=== PATIENT | male | born 1965 | race Caucasian/White ===

== ENCOUNTER 2021-05-10 18:29 | Inpatient (IN) | payer MEDICARE ==
[2021-05-10 19:58] LABS: Basophils % (A) 0 %; Eosinophils # (A) 0.2 k/uL (0-0.7); Eosinophils % (A) 3 %; HCT 40.5 % (39.0-53.0); HGB 13.4 gm/dL (13.0-17.5); Lymphocytes # (A) 2.6 k/uL (1.0-4.8); Lymphocytes % (A) 32 %; MCH 32.4 pg (25.0-35.0); MCHC 33.1 g/dL (31.0-37.0); Mean Platelet Volume 6.9; Monocytes # (A) 0.5 k/uL (0-1.0); Monocytes % (A) 6 %; Neutrophils # (A) 4.7 k/uL (1.3-7.7); Neutrophils % (A) 57 %; Platelet Count 221 k/uL (150-450); RBC 4.14 m/uL (4.30-5.90); RDW 12.1 % (11.5-15.5); WBC 8.2 k/uL (3.8-10.6)
[2021-05-10 20:11] LABS: Amphetamine Screen,Urine Not Detected (NotDetected); Barbiturate Screen,Urine Not Detected (NotDetected); Benzodiazepines Screen,Urine Not Detected (NotDetected); Cocaine Screen,Urine Not Detected (NotDetected); Methadone Screen, Urine Not Detected (NotDetected); Opiate Screen,Urine Detected (NotDetected); Oxycodone Screen, Urine Not Detected (NotDetected); Phencyclidine Screen,Urine Not Detected (NotDetected); Tricyclic Antidepressant,Urine Not Detected (NotDetected); Urn Cannabinoid Scrn Not Detected (NotDetected)
[2021-05-10 20:17] LABS: ALT 22 U/L (4-49); AST 34 U/L (17-59); Acetaminophen <10.0 ug/mL; African American GFR (CKD) >90 (>60 ml/min/1.73 sqM); Alcohol <10 mg/dL; Alkaline Phosphatase 71 U/L (38-126); Anion Gap 7 mmol/L; Blood Urea Nitrogen 17 mg/dL (9-20); Calcium 8.9 mg/dL (8.4-10.2); Carbon Dioxide 24 mmol/L (22-30); Chloride 104 mmol/L (98-107); Glucose 99 mg/dL (74-99); Non-African American GFR(CKD) >90 (>60 ml/min/1.73 sqM); Potassium 4.2 mmol/L (3.5-5.1); Salicylate <1.0 mg/dL; Sodium 135 mmol/L (137-145); Total Bilirubin 0.4 mg/dL (0.2-1.3); Total Protein 6.9 g/dL (6.3-8.2)
--- NOTE | 2021-05-10 21:47 | ED ---
Psych HPI - General Chief Complaint: Psychiatric Symptoms Stated Complaint: mental health Time Seen by Provider: 05/10/21 18:45 Source: patient, EMS Mode of arrival: EMS - History of Present Illness Initial Comments: Stephon is a 55-year-old who presents the emergency department today via ambulance for psychiatric evaluation. Patient states that he was just tired and upset. He states he is previously been on psychiatric medications not certain what they are but is not currently on any. Patient states he just moved to [place] from [place] and doesn't have any psychiatric care. He states that his significant other has contacted primary care and psychiatric care for f ollow-up and he has not seen any physicians yet. - Related Data Home Medications Medication Instructions Recorded Confirmed Acetaminophen-Codeine 300-30mg 1 tab PO Q6H PRN 05/10/21 05/10/21 [Tylenol w/codeine #3] Coconut Oil (Unknown Strength) 1 cap PO DAILY 05/10/21 05/10/21 Cyclobenzaprine HCl 10 mg PO TID PRN 05/10/21 05/10/21 Gabapentin [Neurontin] 300 mg PO TID 05/10/21 05/10/21 Glucos Sul 2Kcl/MSM/Chond/C/Mn 1 cap PO DAILY 05/10/21 05/10/21 [Glucosamine Chondroitin Cap] Ibuprofen [Motrin] 600 mg PO Q6HR PRN 05/10/21 05/10/21 [place]-3 Fatty Acids/Fish Oil [Fish 1 cap PO BID 05/10/21 05/10/21 Oil 1,000 mg Softgel] Allergies Allergy/AdvReac Type Severity Reaction Status Date / Time cat dander Allergy Verified 05/10/21 19:53 FROGS Allergy Uncoded 05/10/21 19:53 GRASS Allergy Uncoded 05/10/21 19:53 Review of Systems ROS Statement: Those systems with pertinent positive or pertinent negative responses have been documented in the HPI. ROS Other: All systems not noted in ROS Statement are negative. Past Medical History Past Medical History: Diabetes Mellitus Additional Past Medical History / Comment(s): throat CA, history of ETOH abuse (patient states that he is sober now) History of Any Multi-Drug Resistant Organisms: None Reported Past Surgical History: Joint Replacement Additional Past Surgical History / Comment(s): L knee replacement, back surgery, right ankle surgery, 2 rods and bolts in back, L5 fusion. Past Psychological History: Anxiety, Depression Smoking Status: Current every day smoker Past Alcohol Use History: None Reported Past Drug Use History: None Reported General Exam - General Exam Comments Initial Comments: Physical Exam GENERAL: Patient is well-developed and well-nourished. Patient is nontoxic and well-hydrated and is in no distress. HENT: Normocephalic, Atraumatic. EYES: PERRL, EOMI PULMONARY: Unlabored respirations. CARDIOVASCULAR: RRR Warm and well perfused extremities ABDOMEN: Non-distended SKIN: No rashes or bruising : Deferred NEUROLOGIC: Alert and oriented Normal speech Normal gait MUSCULOSKELETAL: Moving all extremities with no apparent injury PSYCHIATRIC: Easily agitated Limitations: no limitations Course Vital Signs 05/10/21 18:57 Temperature 98.5 F Pulse Rate 84 Respiratory 18 Rate Blood Pressure 118/74 O2 Sat by Pulse 96 Oximetry Medical Decision Making - Medical Decision Making Patient's significant other arrived at bedside, she petitioned area and she states that the patient has made suicidal and homicidal threats. He is certain to hurt their animals. He has a psychiatric history and a violent history. Patient was medically cleared and was evaluated by emergency psychiatric services who agree the patient needs to be hospitalized. Psychiatric certification was completed - Lab Data Result diagrams: 05/10/21 18:46 05/10/21 18:46 Lab Results 05/10/21 05/10/21 05/10/21 Range/Units 18:46 18:46 19:51 WBC 8.2 (3.8-10.6) k/uL RBC 4.14 L (4.30-5.90) m/uL Hgb 13.4 (13.0-17.5) gm/dL Hct 40.5 (39.0-53.0) % MCV 98.0 (80.0-100.0) fL MCH 32.4 (25.0-35.0) pg MCHC 33.1 (31.0-37.0) g/dL RDW 12.1 (11.5-15.5) % Plt Count 221 (150-450) k/uL MPV 6.9 Neutrophils % 57 % Lymphocytes % 32 % Monocytes % 6 % Eosinophils % 3 % Basophils % 0 % Neutrophils # 4.7 (1.3-7.7) k/uL Lymphocytes # 2.6 (1.0-4.8) k/uL Monocytes # 0.5 (0-1.0) k/uL Eosinophils # 0.2 (0-0.7) k/uL Basophils # 0.0 (0-0.2) k/uL Sodium 135 L (137-145) mmol/L Potassium 4.2 (3.5-5.1) mmol/L Chloride 104 (98-107) mmol/L Carbon Dioxide 24 (22-30) mmol/L Anion Gap 7 mmol/L BUN 17 (9-20) mg/dL Creatinine 0.76 (0.66-1.25) mg/dL Est GFR (CKD-EPI)AfAm >90 (>60 ml/min/1.73 sqM) Est GFR (CKD-EPI)NonAf >90 (>60 ml/min/1.73 sqM) Glucose 99 (74-99) mg/dL Calcium 8.9 (8.4-10.2) mg/dL Total Bilirubin 0.4 (0.2-1.3) mg/dL AST 34 (17-59) U/L ALT 22 (4-49) U/L Alkaline Phosphatase 71 (38-126) U/L Total Protein 6.9 (6.3-8.2) g/dL Albumin 4.0 (3.5-5.0) g/dL Salicylates <1.0 mg/dL Urine Opiates Screen Detected H (NotDetected) Ur Oxycodone Screen Not Detected (NotDetected) Urine Methadone Screen Not Detected (NotDetected) Ur Propoxyphene Screen Not Detected (NotDetected) Acetaminophen <10.0 ug/mL Ur Barbiturates Screen Not Detected (NotDetected) U Tricyclic Antidepress Not Detected (NotDetected) Ur Phencyclidine Scrn Not Detected (NotDetected) Ur Amphetamines Screen Not Detected (NotDetected) U Methamphetamines Scrn Not Detected (NotDetected) U Benzodiazepines Scrn Not Detected (NotDetected) Urine Cocaine Screen Not Detected (NotDetected) U Marijuana (THC) Screen Not Detected (NotDetected) Serum Alcohol <10 mg/dL Disposition Clinical Impression: Suicidal ideation Disposition: TRANSFER TO PSYCH HOSP/UNIT Condition: Stable Referrals: Nonstaff,Physician [Primary Care Provider] - 1-2 days
[2021-05-10] MEDS ORDERED: MAGNESIUM HYDROXIDE 2,400 MG/10 ML CUP PO PRN (23:10)
[2021-05-10] MEDS ORDERED: MAG HYDROX/AL HYDROX/SIMETH 30 ML CUP PO PRN (23:10)
[2021-05-10] MEDS ORDERED: LORazepam 1 MG TAB PO PRN (23:10)
[2021-05-10] MEDS ORDERED: HALOPERIDOL LACTATE 5 MG/ML 1 ML VIAL IM PRN (23:14)
[2021-05-10] MEDS ORDERED: haloperidoL 5 MG TAB PO PRN (23:14)
[2021-05-10] MEDS ORDERED: LORazepam 2 MG/ML INJ IM PRN (23:16)
[2021-05-10 23:25] LABS: Appearance,Urine Clear (Clear); Bilirubin,Urine Negative (Negative); Blood,Urine Negative (Negative); Color,Urine Light Yellow; Glucose,Urine (UA) Negative (Negative); Ketones,Urine Negative (Negative); Leukocyte Esterase,Urine Negative (Negative); Nitrite,Urine Negative (Negative); PH, Urine 6.5 (5.0-8.0); Protein,Urine Negative (Negative); Specific Gravity,Urine 1.005 (1.001-1.035); Urobilinogen,Urine <2.0 mg/dL (<2.0)
[2021-05-11] MEDS: ACETAMINOPHEN TAB 325 MG TAB PO PRN ×5 (00:30→22:19)
--- NOTE | 2021-05-11 02:54 | P.PN ---
Progress Note - Text Progress Note Date: 05/11/21 Patient sleeping. Will evaluate in am.
[2021-05-11] MEDS: NICOTINE 21MG/24HR PATCH TRANSDERM SCH (08:21)
[2021-05-11] MEDS ORDERED: NICOTINE 14MG/24HR PATCH TRANSDERM SCH (09:00)
[2021-05-11 09:38] LABS: Chol/HDL Ratio 3.67 Ratio; HDL Cholesterol 36.5 mg/dL (40.00-60.00); LDL Cholesterol,Calculated 72.3 mg/dL (0.0-131.0); VLDL Calculation 25.2 mg/dL (5.00-40.00)
[2021-05-11] MEDS: DULoxetine HCL 30 MG CAPSULE.DR PO SCH (13:37)
[2021-05-11] MEDS: ATORVASTATIN 20 MG TAB PO SCH (13:37)
--- NOTE | 2021-05-11 14:54 | HP ---
HISTORY AND PHYSICAL DATE OF SERVICE: 05/11/2021 IDENTIFYING DATA: The patient is a 55-year-old male. He lives with his girlfriend. He presented to the ED for evaluation. His girlfriend completed a petition for involuntary hospitalization. CHIEF COMPLAINT: The patient was depressed. He had made suicide statements. HISTORY OF PRESENTING ILLNESS: The patient has had past issues with alcohol. He said he was in a treatment program one time and stopped stop drinking as of 2006 and has not used alcohol since then. He denies use of marijuana or other abusive substances. He notes that he had been on some medication for depression 2 or 3 years ago, though he could not provide much detail. His current situation is that he had just moved in December from [place] to [place] to live with his girlfriend. The two of them have been together over the last 2 years or so. They met online and would visit between [place] and [place] until this past December. 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 He was seeking general medical care and just went to [facility] 1 week ago, he got set up for a pain management appointment along with a cardiology appointment because of hyperlipidemia. Also, he was set up with some mental health followup. He was not able to give details or specifics as to where the referrals were. He acknowledges that he has been having some depression and stress, mainly related to his relationship with his girlfriend. He states that the two of them seem to get into conflicts, which by his report is mainly around some of his girlfriend's behavior and choices she makes. He acknowledges that he has had some depression issues over the last several weeks or longer. He notes that his sleep is down. He says some nights he can sleep well and others not at all. His appetite has been down of late. He has loss of motivation, energy and interest. He denies hallucinations or delusional thinking. He does not clearly identify panic or posttraumatic issues. He does acknowledge some anxiety. He notes one of his problems is that he has drifted away from getting from having his connections with the AA. He says the things that have been the most supportive for him over the years in dealing with his alcohol has been AA and caodaism. He has been encouraging his girlfriend that the two of them should get back to caodaism together. He notes that he sees a potential benefit for his getting involved in individual therapy, though also says that he and his girlfriend have talked about getting into couples therapy together. He had been on long-term use of some opioid pain medications and mainly had been prescribed Tylenol with codeine, which he said he had been on for quite a period of time back in [place]. He said that he has not used any since moving to [place] as he has not had a prescription. When he went to [facility] this past week he was able to give get a limited prescription for Tylenol with codeine which she uses for lower back and hip pain. He is not presently on any psychotropic medications. He notes that he has been taking Flexeril and Neurontin to help with pain issues along with Motrin. He is denying any suicide thinking at the time of the interview. He is admitted for further evaluation. SUBSTANCE USE HISTORY: As above. He has a distant past history of alcohol dependence. He has been on long- term use of Tylenol with codeine up until December. PAST MEDICAL HISTORY: Patient has orthopedic injuries in his lower back and hips related to a fall in 2016. He also says he has chronic pain with those conditions in addition he has emphysema and hypercholesterolemia. FAMILY AND SOCIAL HISTORY: Patient did not provide much information. He has been disabled since 2016. 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 He says that he tries to get back to [place] to visit his brother and mother. MENTAL STATUS EXAM: Patient sat with some restlessness. He gave fairly good eye contact he answered questions with brief responses. His thoughts were clear. He was somewhat spontaneous and interactive. He was quite focused on the idea that he that there was not much criteria for him to be in the hospital. He did not believe that documentation in the petition was very accurate. His affect was somewhat intense. His mood dysphoric. He seemed moderately distressed. There was no indication for thought disorder. He was petitioned for making suicide statements, though the patient denies in any impulse or plans in that direction. On cognitive exam, the patient was oriented and alert. Recent remote memory was intact. The patient could recall 2/3 objects in 4 minutes. He could give the days of the week in reverse order without difficulty. He could spell world forward and backwards. Insight and judgment were fair. Fund of knowledge average. PHYSICAL EXAM: As per medical consultation. It is noteworthy that when he was in the ED there were times that he seemed to be quite calm and appropriate in his interactions. He was respectful and polite. Then there are other times where he seemed to get angry and distressed. Apparently his girlfriend had made indications that his threats of harm both to himself and others is much more significant issue than the patient was willing to acknowledge. ASSESSMENT: This 55-year-old male is diagnosed with major depression. He does have chronic pain issues, which may benefit from antidepressant therapy as well. There is apparently a fair difference of opinion between the patient and girlfriend in regard to the patient's general mental state and she has expressed significant concern that the patient himself minimizes. Apparently staff in the ED have also observed some significant shifts in mood. There would be concern for his use of opioid pain medications, though the only information we have is that he has been off opioids since December other than a recent prescription. Strengths include his recognition of important supports such as AA and caodaism. Weakness includes relationship conflicts. DIAGNOSES: 1. Major depression chronic and recurrent severe, without psychotic features. 2. Distant history of alcohol dependence in remission. 3. Chronic pain disorder. 4. Emphysema. 5. Hypercholesterolemia. RECOMMENDATIONS: Patient will be admitted for comprehensive medical psychiatric and psychosocial evaluation. We will engage the patient in individual and group therapeutic activities I had an extensive discussion with the patient regarding the petition process, also reviewed medication options for the patient. At this point, I will start the patient on Cymbalta 30 mg a day. Cymbalta often is prescribed by pain specialists for chronic pain, though we discussed that any antidepressant could benefit long-term pain issues. I will start him on 30 mg a day. If he has a relatively short stay, I would look for followup with the indication to titrate up on his Cymbalta. Apparently, the patient has had some contact with potential mental health follow up, we can look on Thursday to help coordinate with followup care. We will focus on stabilization and discharge planning. MMCHIKISL / SILVIAN: [id number] /
--- NOTE | 2021-05-12 04:51 | P.CONS ---
History of Present Illness - Reason for Consult Consult date: 05/11/21 - History of Present Illness The patient is a 55-year-old male with a PMH of tobacco abuse and fall with subsequent chronic lower back pain who presents to the emergency room after being petitioned by his girlfriend for suicidal ideation. Patient reports that he currently feels well and denied any active complaints. He denied chest discomfort, shortness of breath, fever, chills, cough. Denied nausea, vomiting, abdominal pain, diarrhea. Reports smoking 1-1/2 packs of cigarettes daily. Past several decades. Review of systems: Pertinent positives and negatives as discussed in HPI, a complete review of systems was performed and all other systems are negative. Physical examination: General: non toxic, no distress, appears at stated age, obese Derm: no unusual rashes/lesions no unusual ecchymoses, warm, dry Head: atraumatic, normocephalic, symmetric Eyes: EOMI, no lid lag, anicteric sclera, pupils equal round reactive to light ENT: Nose and ears atraumatic, no thrush, no pharyngeal erythema Neck: No thyromegaly, no cervical lymphadenopathy, trachea midline, supple Mouth: no lip lesion, mucus membranes moist Cardiovascular: S1S2 reg, no murmur, positive posterior tibial pulse bilateral, no edema, capillary refill less than 2 seconds Lungs: CTA bilateral, no rhonchi, no rales , no accessory muscle use Abdominal: soft, nontender to palpation, no guarding, no appreciable organomegaly, normal bowel sounds Ext: no gross muscle atrophy, muscle strength 5 out of 5 in all 4 extremities grossly, no contractures, Neuro: CN II-XI grossly intact, light touch intact all 4 extremities, finger to nose within normal limits, Psych: Alert, oriented, appropriate affect Assessment/plan Tobacco abuse -Advised on the importance of cessation -Nicotine patch when necessary Depression with suicidal ideation -As per psychiatry Past Medical History Past Medical History: Diabetes Mellitus Additional Past Medical History / Comment(s): throat CA, history of ETOH abuse (patient states that he is sober now) History of Any Multi-Drug Resistant Organisms: None Reported Past Surgical History: Joint Replacement Additional Past Surgical History / Comment(s): L knee replacement, back surgery, right ankle surgery, 2 rods and bolts in back, L5 fusion. Past Psychological History: Anxiety, Depression Smoking Status: Current every day smoker Past Alcohol Use History: None Reported, Abuse Additional Past Alcohol Use History / Comment(s): Past history of ETOH abuse, sober since 2006, goes To AA meeting routinely Past Drug Use History: None Reported - Past Family History Father Family Medical History: Hyperlipidemia Medications and Allergies Home Medications Medication Instructions Recorded Confirmed Type Acetaminophen-Codeine 300-30mg 1 tab PO Q6H PRN 05/10/21 05/10/21 History [Tylenol w/codeine #3] Coconut Oil (Unknown Strength) 1 cap PO DAILY 05/10/21 05/10/21 History Cyclobenzaprine HCl 10 mg PO TID PRN 05/10/21 05/10/21 History Gabapentin [Neurontin] 300 mg PO TID 05/10/21 05/10/21 History Glucos Sul 2Kcl/MSM/Chond/C/Mn 1 cap PO DAILY 05/10/21 05/10/21 History [Glucosamine Chondroitin Cap] Ibuprofen [Motrin] 600 mg PO Q6HR PRN 05/10/21 05/10/21 History [place]-3 Fatty Acids/Fish Oil [Fish 1 cap PO BID 05/10/21 05/10/21 History Oil 1,000 mg Softgel] Allergies Allergy/AdvReac Type Severity Reaction Status Date / Time cat dander Allergy Verified 05/10/21 19:53 FROGS Allergy Uncoded 05/10/21 19:53 GRASS Allergy Uncoded 05/10/21 19:53 Physical Exam Vitals: Vital Signs Temp Pulse Pulse Resp BP BP Pulse Ox 05/11/21 00:29 97.7 F 75 18 142/75 97 05/10/21 18:57 98.5 F 84 18 118/74 96 Intake and Output 05/11/21 05/11/21 05/11/21 06:59 14:59 22:59 Other: Weight 108.8 kg Results CBC & Chem 7: 05/10/21 18:46 05/10/21 18:46 Labs: Abnormal Lab Results - Last 24 Hours (Table) 05/10/21 05/10/21 05/10/21 Range/Units 18:44 18:46 18:46 RBC 4.14 L (4.30-5.90) m/uL Sodium 135 L (137-145) mmol/L HDL Cholesterol 36.50 L (40.00-60.00) mg/dL Urine Opiates Screen (NotDetected) 05/10/21 Range/Units 19:51 RBC (4.30-5.90) m/uL Sodium (137-145) mmol/L HDL Cholesterol (40.00-60.00) mg/dL Urine Opiates Screen Detected H (NotDetected)
[2021-05-12] MEDS: FLUTICASONE 220 MCG INHALATION SCH ×2 (07:45→20:41)
[2021-05-12] MEDS: VENTOLIN INHALATION PRN ×2 (07:45→20:41)
[2021-05-12] MEDS: ACETAMINOPHEN TAB 325 MG TAB PO PRN ×2 (07:54→20:22)
[2021-05-12] MEDS: ATORVASTATIN 20 MG TAB PO SCH (07:55)
[2021-05-12] MEDS: DULoxetine HCL 30 MG CAPSULE.DR PO SCH (07:55)
[2021-05-12] MEDS: NICOTINE 21MG/24HR PATCH TRANSDERM SCH (07:55)
[2021-05-12] MEDS ORDERED: BACLOFEN 10 MG TAB PO PRN (11:17)
[2021-05-12] MEDS: IBUPROFEN 400 MG TAB PO SCH ×3 (12:05→23:57)
[2021-05-12] MEDS: OLANZapine 10 MG TAB PO SCH ×2 (12:05→20:43)
[2021-05-12] MEDS: GABAPENTIN 300 MG CAP PO SCH ×2 (12:06→20:43)
[2021-05-12] MEDS: ASPIRIN 81 MG PO SCH (12:06)
--- NOTE | 2021-05-12 12:22 | PN ---
PROGRESS NOTE DATE OF SERVICE: 05/12/2021. CHIEF COMPLAINT: The patient was depressed, he had made suicide statements. INTERVAL HISTORY: Patient has been doing fair. He had a quiet day yesterday. He comes out on the unit, he interacts with others. He attended groups. It is noted that in the groups and milieu, he presented in a calm and reasonable manner. He slept fairly well last night. Today he has been up. It is noted that I had an extensive telephone call with the patient's girlfriend, Ivy. She describes that the patient has been explosive. She notes that the two of them had been together in [place] toward the end of last year, though then they had a break-up mainly because of his explosive nature. They continued to stay in contact and he ultimately moved back to [place] to live with her in December. She described that he could have frequent episodes where he gets very intense and angry. He will do things such as threaten animals, saying things like he would cut the dog's head off. He has constant talk about hopelessness and suicide. He had a lot of anger issues over some of the basic issues the two of them were dealing with regarding their house. The patient has made statements that he would kill himself and also that he would kill her end all of the problems that they have had. She noted that any little thing can set him off to where he gets very intense and loud. He also seems to need attention and when others are getting attention that seems to set him off even more. She gave as an example that they were just at her aunt's a few days ago and that seemed to get him into quite an intense spell. She notes that he can have quite impulsive and intense behavior if he has pain. He she has observed him taking Motrin 800 mg 6-7 tablets at that time. He has been taking Tylenol 3, though the amount he has had has been fairly limited. She believed that he may have taken about 8 tablets in the last 2 days prior to coming into the hospital. She gave an example that recently he ended up drinking a whole bottle of NyQuil to help put himself to sleep and then ended up in a fairly disorganized state to the point where he urinated on the floor and was quite ataxic. She notes that if the two of them get into any kind of discussion about things often he ends up turning everything back on her and accusing her of one thing or another. She notes that he has had some paranoid thinking and 1 example was that recently he found some razor blades in his boots and was believing that others had put it there purposely. She says the two of them have talked about some couples counseling. When I talked to the patient and reviewed these issues, he was quite adamant about the idea of how much trouble Ivy has. He made a fair effort to again turn the discussion on problems she has and how that causes him a lot of distress. He made suggestions that she he made suggestions that she has been unfaithful that she likely has bipolar disorder and that she has quite disorganized behavior at times. He stated he believes she should be in the hospital and not him. One issue that Ivy noted was that the patient does have significant mood swings and will have episodes where he will get into a very high mood. He will have high energy. He may go on spending sprees and then can crash into depression. She feels that he has had quite a difficult time with trying to maintain a more even mood and has had a lot of mood swings from highs to low. When I had discussed this with the patient he did seem to except to early some degree that bipolar issues may be in the picture for him. At this point he has not had problems with the start of Cymbalta. MENTAL STATUS EXAM: Patient presented in quite an intense manner. When I reviewed issues regarding the telephone call with the girlfriend he was quite upset and angry. He at times would ramble about all of the problems he believed that she has had. He tended to minimize his own issues. His thoughts were clear and coherent, though he rambled at times. His affect was intense. His mood depressed. He was significantly distressed. There was a question of paranoid thinking. When I talked to him, he states that he does not have any thoughts of harming himself or others. He was oriented and alert. ASSESSMENT: I will initiate a diagnosis of bipolar disorder. I had an extensive discussion with the patient regarding treatment for bipolar disorder. At this point I will start him on Zyprexa 10 mg twice a day. I discussed the potential risk of his being on an antidepressant as it relates to the potential for destabilizing in his bipolar condition. I suggested that the patient should likely continue on 30 mg of Cymbalta and focus on Zyprexa as a primary medication at this point. We discussed that it may take a few weeks to have clarity as far as how much benefit he may get from Zyprexa. Beyond that it might be reasonable to look at possibly titrating up on Cymbalta in part as a pain medication. I briefly reviewed issues relating to Zyprexa though the though kept it limited as the patient was not too inclined to engage in that conversation. Part of our discussion was that the patient was very focused on being discharged from the hospital as soon as possible. I discussed that I would anticipate a reasonable time frame for hospitalization would be from Thursday until Thursday and that would depend on things getting a little more stable with his starting the Zyprexa. The patient states that he did have a referral for Psychiatry that came through [facility]. He should have an e-mail in that regard. I told him that he can work with social workers tomorrow and get the information so that we can help him get followup appointments in place. We will focus on stabilization and discharge planning. VANGIE / GABRIELLE: [id number] /
[2021-05-13 06:37] VITALS: BP 126/73; PULSE 81; RESP 20; TEMP 97.6
[2021-05-13] MEDS: NICOTINE 21MG/24HR PATCH TRANSDERM SCH (08:21)
[2021-05-13] MEDS: ASPIRIN 81 MG PO SCH (08:21)
[2021-05-13] MEDS: FLUTICASONE 220 MCG INHALATION SCH ×2 (08:21→20:02)
[2021-05-13] MEDS: ATORVASTATIN 20 MG TAB PO SCH (08:21)
[2021-05-13] MEDS: IBUPROFEN 400 MG TAB PO SCH ×3 (08:21→20:01)
[2021-05-13] MEDS: DULoxetine HCL 30 MG CAPSULE.DR PO SCH (08:22)
[2021-05-13] MEDS: OLANZapine 10 MG TAB PO SCH (08:22)
[2021-05-13] MEDS: VENTOLIN INHALATION PRN ×2 (08:23→20:02)
[2021-05-13] MEDS: GABAPENTIN 300 MG CAP PO SCH ×2 (08:23→20:01)
[2021-05-13] MEDS: ACETAMINOPHEN TAB 325 MG TAB PO PRN ×2 (12:01→17:46)
--- NOTE | 2021-05-13 13:49 | P.PN ---
Progress Note - Text Progress Note Date: 05/13/21 Interval History: Patient was seen wandering the hallways and was directable and agreeable to merari nunez with assembly instructions writer in the office. Patient appeared to be fairly calm and directable during conversation. He answered questions appropriately. He currently is able to sleep fairly last night. He did claim that over the weekend he was feeling fairly tired during group due to the Zyprexa in the morning. He states that his mood and anxiety evident improving and he is no longer feeling much depression. He states that he spoke to his and wants ago back home tomorrow. He claims that he has been trying to go to groups and participate as best as he can. At this time patient denies any suicidal or homical ideations, intent or plan. Patient denies any auditory, visual hallucinations and denies any paranoia or delusions. Patient denies any side effects from the medications and has been compliant with meds. Patient had signed an AMA today. Mental Status Exam: General Appearance: Patient appears to be well built, stated age is alert, directable, and cooperative. Behavior: Patient is calmly seated without any agitated behavior. Cooperative Speech: Patient's speech is fluent and nonpressured. Mood/Affect: Mood is improving mildly, affect is congruent and constricted. Suicidality/Homicidality: Patient denies having any suicidal or homicidal ideation intent or plan. Perceptions: Patient denies any visual hallucinations and denies any auditory hallucinations Though content/process: There is no evidence of any delusional thought content and thought process is linear and goal-directed. Memory and concentration: AOX3, grossly intact for the purposes of this session Judgment and insight: Improving mildly Assessment Depressive disorder unspecified, rule out bipolar depression versus major depressive disorder Nicotine dependence Plan: -Patient continues to meet criteria for inpatient psychiatric admission for symptom stabilization and safety. Patient has signed adult voluntary form and medication consent and was placed in patient's chart. -Medications: Decrease Zyprexa to 10 mg daily at bedtime for insomnia/mood adjunct, continue Cymbalta 30 mg daily for mood/anxiety/pain. -When necessary Ativan and Haldol for agitation/aggression. -NRT - nicotine patch -SW on board for discharge planning. Encouraged the patient to participate in milieu. Patient signed AMA today. Likely discharge tomorrow.
[2021-05-13] MEDS ORDERED: OLANZapine 10 MG TAB PO SCH (21:00)
[2021-05-14] MEDS: ASPIRIN 81 MG PO SCH (08:15)
[2021-05-14] MEDS: DULoxetine HCL 30 MG CAPSULE.DR PO SCH (08:15)
[2021-05-14] MEDS: IBUPROFEN 400 MG TAB PO SCH ×2 (08:15→15:49)
[2021-05-14] MEDS: NICOTINE 21MG/24HR PATCH TRANSDERM SCH (08:15)
[2021-05-14] MEDS: GABAPENTIN 300 MG CAP PO SCH (08:16)
[2021-05-14] MEDS: ATORVASTATIN 20 MG TAB PO SCH (08:16)
[2021-05-14] MEDS: FLUTICASONE 220 MCG INHALATION SCH (08:17)
[2021-05-14] MEDS: VENTOLIN INHALATION PRN ×2 (08:18→15:47)
--- NOTE | 2021-05-14 10:30 | P.DS ---
Providers Date of admission: 05/10/21 23:07 Expected date of discharge: 05/14/21 Attending physician: Elliot Hayden MD Consults: 05/10/21 23:10 Consult Physician Routine Consulting Provider: [facility] Consult Reason/Comments: H&P for mental health admission Do you want consulting provider notified?: Yes Primary care physician: Physician Nonstaff - Discharge Diagnosis(es) (1) Depressive disorder Current Visit: Yes Status: Acute Priority: High (2) Nicotine dependence Current Visit: Yes Status: Acute Priority: Low Hospital Course: Admission HPI: Admission note was completed by Dr. Barragan "the patient is a 55-year-old male. He lives with his girlfriend. He presented to the ED for evaluation. His girlfriend completed a petition for involuntary hospitalization. The patient was depressed. He made suicidal statements. The patient has had past issues with alcohol. He said he was in a treatment program 1 time and stopped drinking as of 2006 and has not used alcohol since then. He denies use of marijuana or other abuse of substances. He notes that he had been on some medication for depression 2 or 3 years ago, though he could not provide much detail. His current situation is that he had just moved in December from [place] to [place] to live with his girlfriend. The 2 of them have been together for over the last 2 years or so. They met online and would visit between [place] and [place] until this past December. 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 He was seeking general medical care and just went to [facility] one week ago, he got set up for pain management appointment along with a cardiology appointment because of hyperlipidemia. Also he was set up with some mental health follow-up. She was not able to give details or specifics as to where the referrals were. He acknowledges that he has been having some depression and stress, mainly related to his relationship with his girlfriend. He states that the 2 of them seem to get into conflicts which is mainly around some of his girlfriend's behavior and choices she makes. He acknowledges that he has had some depression issues over the last several years or longer. He notes that his sleep is down. He says some nights he can sleep well and others not at all. His appetite has been down of late. He has lost motivation, energy and interest. He denies hallucinations or delusional thinking. He does not clearly identify panic or posttraumatic issues. He does acknowledge some anxiety. He notes one of his problems is that he has drifted away from getting from having his connections with AA. He says the things that have been the most supportive for him over the years and dealing with alcohol have been AA and spiritism. He has been encouraging his girlfriend and the 2 of them should get back to spiritism together. He notes that he sees the potential benefit for his getting involved in individual therapy though also says that he and his girlfriend have talked about getting into couples therapy together. He has been on long-term use of some opioid pain medications and mainly had been prescribed Tylenol with codeine, which he said he had been on for quite a period of time back in [place]. He said that he has not used any since moving to [place] as he has not had a prescription. When he went and before this past week he was able to give get a limited prescription for Tylenol with codeine which she uses for lower back and hip pain. He is not presently on any psychotropic medications. He notes that he has been taking Flexeril and Neurontin to help with pain issues along with Motrin. He is denying any suicidal thinking at the time of the interview. He has been in for further evaluation." Hospital course: Upon admission to the unit patient was directable and agreeable to commence treatment and signed adult voluntary form . Patient got along well with other patients on the unit and followed unit protocol. Patient was compliant with the medications and denied any side effects throughout hospital course. Patient was started on Cymbalta 30 mg daily for mood/anxiety/pain. Patient was also started on Zyprexa and increased to a dose of 10 mg daily at bedtime for mood adjunct/insomnia. Patient spoke of his stressors and engaged in therapy both group and individual. Patient was also seen by medical team for history and physical exam. Throughout the course of the hospitalization patient gradually improved with regards to mood, anxiety, sleep and became more future oriented with improved insight and judgment. On the day of discharge patient denied any suicidal or homicidal ideations intent or plan denied any auditory or visual hallucinations. Patient endorsed wanting to live for his health and family. The patient denied any access to guns or weapons. Patient denied any paranoia and did not endorse any delusions. Patient does have a significant history of substance abuse and was counseled on abstaining from all substances including alcohol and marijuana. Patient was also counseled on the medications and need for regular compliance and was encouraged to follow-up with their outpatient appointment for mental health and also for primary care. Prior to discharge a family meeting will be arranged by social and political studies professor to answer any questions and ensure safety upon discharge. Mental status exam: General Appearance: Patient appears to be well built, tattoos, stated age is alert, pleasant, and cooperative. Patient is in no acute distress and has improved hygiene and grooming Behavior: Patient is calmly seated without any agitated behavior. Speech: Patient's speech is fluent and nonpressured. Mood/Affect: Patient reports their mood is "better", affect is congruent and euthymic. Suicidality/Homicidality: Patient denies having any suicidal or homicidal ideation intent or plan. Perceptions: Patient denies any auditory or visual hallucinations. Though content/process: There is no evidence of any delusional thought content and thought process is linear and goal-directed. more future oriented Memory and concentration: AOX3, grossly intact for the purposes of this session. Can spell "WORLD" backwards correctly. Judgment and insight: improved with guarded prognosis Impression: Depressive disorder unspecified, rule out bipolar depression versus major depressive disorder Nicotine dependence Plan: -Continue with discharge today as patient has improved and stabilized psychiatrically and is not currently an imminent threat to himself and/or others. -Continue medications: Cymbalta 30 mg daily for mood/anxiety/pain, Zyprexa 10 mg daily at bedtime for insomnia/mood adjunct. -Patient was counseled on the need for medication compliance and appropriate follow-up at mental health and also primary care for medical issues. Patient verbalized understanding and agreed. -Social work to arrange for and conduct family meeting to ensure safety upon discharge and answer any questions/concerns. Social work also to arrange for patients follow up appointments with [facility] for psychiatric care along with follow up with primary care provider. -Patient counseled on abstaining from recreational drugs and marijuana and alcohol. Was informed/educated on the adverse effects on their physical and mental health. Patient verbally agreed and understood. -Patient was instructed to return to the hospital or seek immediate medical care if their psychiatric or medical symptoms do worsen or reoccur. Allergies Allergy/AdvReac Type Severity Reaction Status Date / Time cat dander Allergy Verified 05/10/21 19:53 FROGS Allergy Uncoded 05/10/21 19:53 GRASS Allergy Uncoded 05/10/21 19:53 Laboratory Results WBC 8.2 k/uL (3.8-10.6) 05/10/21 18:46 RBC 4.14 m/uL (4.30-5.90) L 05/10/21 18:46 Hgb 13.4 gm/dL (13.0-17.5) 05/10/21 18:46 Hct 40.5 % (39.0-53.0) 05/10/21 18:46 MCV 98.0 fL (80.0-100.0) 05/10/21 18:46 MCH 32.4 pg (25.0-35.0) 05/10/21 18:46 MCHC 33.1 g/dL (31.0-37.0) 05/10/21 18:46 RDW 12.1 % (11.5-15.5) 05/10/21 18:46 Plt Count 221 k/uL (150-450) 05/10/21 18:46 MPV 6.9 05/10/21 18:46 Neutrophils % 57 % 05/10/21 18:46 Lymphocytes % 32 % 05/10/21 18:46 Monocytes % 6 % 05/10/21 18:46 Eosinophils % 3 % 05/10/21 18:46 Basophils % 0 % 05/10/21 18:46 Neutrophils # 4.7 k/uL (1.3-7.7) 05/10/21 18:46 Lymphocytes # 2.6 k/uL (1.0-4.8) 05/10/21 18:46 Monocytes # 0.5 k/uL (0-1.0) 05/10/21 18:46 Eosinophils # 0.2 k/uL (0-0.7) 05/10/21 18:46 Basophils # 0.0 k/uL (0-0.2) 05/10/21 18:46 Sodium 135 mmol/L (137-145) L 05/10/21 18:46 Potassium 4.2 mmol/L (3.5-5.1) 05/10/21 18:46 Chloride 104 mmol/L (98-107) 05/10/21 18:46 Carbon Dioxide 24 mmol/L (22-30) 05/10/21 18:46 Anion Gap 7 mmol/L 05/10/21 18:46 BUN 17 mg/dL (9-20) 05/10/21 18:46 Creatinine 0.76 mg/dL (0.66-1.25) 05/10/21 18:46 Est GFR (CKD-EPI)AfAm >90 (>60 ml/min/1.73 sqM) 05/10/21 18:46 Est GFR (CKD-EPI)NonAf >90 (>60 ml/min/1.73 sqM) 05/10/21 18:46 Glucose 99 mg/dL (74-99) 05/10/21 18:[address] Glu mg/dL 117 05/10/21 18:44 Hemoglobin A1c 5.7 % (4.0-6.0) 05/10/21 18:44 Calcium 8.9 mg/dL (8.4-10.2) 05/10/21 18:46 Total Bilirubin 0.4 mg/dL (0.2-1.3) 05/10/21 18:46 AST 34 U/L (17-59) 05/10/21 18:46 ALT 22 U/L (4-49) 05/10/21 18:46 Alkaline Phosphatase 71 U/L (38-126) 05/10/21 18:46 Total Protein 6.9 g/dL (6.3-8.2) 05/10/21 18:46 Albumin 4.0 g/dL (3.5-5.0) 05/10/21 18:46 Triglycerides 126.00 mg/dL (0.00-149.00) 05/10/21 18:44 Cholesterol 134.00 mg/dL (0.00-200.00) 05/10/21 18:44 LDL Cholesterol, Calc 72.3 mg/dL (0.0-131.0) 05/10/21 18:44 VLDL Cholesterol, Calc 25.20 mg/dL (5.00-40.00) 05/10/21 18:44 HDL Cholesterol 36.50 mg/dL (40.00-60.00) L 05/10/21 18:44 Cholesterol/HDL Ratio 3.67 Ratio 05/10/21 18:44 TSH 0.800 mIU/L (0.465-4.680) 05/10/21 18:44 Urine Color Light Yellow 05/10/21 19:51 Urine Appearance Clear (Clear) 05/10/21 19:51 Urine pH 6.5 (5.0-8.0) 05/10/21 19:51 Ur Specific [place] 1.005 (1.001-1.035) 05/10/21 19:51 Urine Protein Negative (Negative) 05/10/21 19:51 Urine Glucose (UA) Negative (Negative) 05/10/21 19:51 Urine Ketones Negative (Negative) 05/10/21 19:51 Urine Blood Negative (Negative) 05/10/21 19:51 Urine Nitrite Negative (Negative) 05/10/21 19:51 Urine Bilirubin Negative (Negative) 05/10/21 19:51 Urine Urobilinogen <2.0 mg/dL (<2.0) 05/10/21 19:51 Ur Leukocyte Esterase Negative (Negative) 05/10/21 19:51 Salicylates <1.0 mg/dL 05/10/21 18:46 Urine Opiates Screen Detected (NotDetected) H 05/10/21 19:51 Ur Oxycodone Screen Not Detected (NotDetected) 05/10/21 19:51 Urine Methadone Screen Not Detected (NotDetected) 05/10/21 19:51 Ur Propoxyphene Screen Not Detected (NotDetected) 05/10/21 19:51 Acetaminophen <10.0 ug/mL 05/10/21 18:46 Ur Barbiturates Screen Not Detected (NotDetected) 05/10/21 19:51 U Tricyclic Antidepress Not Detected (NotDetected) 05/10/21 19:51 Ur Phencyclidine Scrn Not Detected (NotDetected) 05/10/21 19:51 Ur Amphetamines Screen Not Detected (NotDetected) 05/10/21 19:51 U Methamphetamines Scrn Not Detected (NotDetected) 05/10/21 19:51 U Benzodiazepines Scrn Not Detected (NotDetected) 05/10/21 19:51 Urine Cocaine Screen Not Detected (NotDetected) 05/10/21 19:51 U Marijuana (THC) Screen Not Detected (NotDetected) 05/10/21 19:51 Serum Alcohol <10 mg/dL 05/10/21 18:46 Coronavirus (PCR) Not Detected (Not Detectd) 05/10/21 22:05 Vital Signs Temp 97.6 F 05/13/21 06:37 Pulse 81 05/13/21 06:37 Resp 20 05/13/21 06:37 BP 126/73 05/13/21 06:37 Pulse Ox 96 05/12/21 07:41 Patient Condition at Discharge: Stable Plan - Discharge Summary Discharge Rx Participant: No New Discharge Prescriptions: New Nicotine 21Mg/24Hr Patch [Habitrol] 1 patch TRANSDERM DAILY 14 Days patch Gabapentin [Neurontin] 300 mg PO HS 30 Days #30 cap Albuterol Inhaler [Ventolin Hfa Inhaler] 2 puff INHALATION RT-QID PRN #1 gm PRN Reason: Wheezing Aspirin 81 mg PO DAILY 30 Days tab DULoxetine HCL [Cymbalta] 30 mg PO DAILY 30 Days capsule Fluticasone Propionate 220 Mcg [Flovent 220 Mcg Inhaler (Mhu)] 2 puff INHALATION RT-BID #1 gm Atorvastatin [Lipitor] 20 mg PO DAILY 30 Days tab Acetaminophen Tab [Tylenol] 650 mg PO Q6HR PRN 30 Days tab PRN Reason: Pain/Discomfort OLANZapine [ZyPREXA] 10 mg PO HS 30 Days tab Continue Coconut Oil (Unknown Strength) 1 cap PO DAILY Ibuprofen [Motrin] 600 mg PO Q6HR PRN 30 Days tab PRN Reason: Pain Glucos Sul 2Kcl/MSM/Chond/C/Mn [Glucosamine Chondroitin Cap] 1 cap PO DAILY Cyclobenzaprine HCl 10 mg PO TID PRN 30 Days tab PRN Reason: Muscle Spasm Locke-3 Fatty Acids/Fish Oil [Fish Oil 1,000 mg Softgel] 1 cap PO BID 30 Days cap Discontinued Gabapentin [Neurontin] 300 mg PO TID Acetaminophen-Codeine 300-30mg [Tylenol w/codeine #3] 1 tab PO Q6H PRN PRN Reason: Pain Discharge Medication List Coconut Oil (Unknown Strength) 1 cap PO DAILY 05/10/21 [History] Glucos Sul 2Kcl/MSM/Chond/C/Mn [Glucosamine Chondroitin Cap] 1 cap PO DAILY 05/10/21 [History] Acetaminophen Tab [Tylenol] 650 mg PO Q6HR PRN 30 Days tab 05/14/21 [Rx] Albuterol Inhaler [Ventolin Hfa Inhaler] 2 puff INHALATION RT-QID PRN #1 gm 05/14/21 [Rx] Aspirin 81 mg PO DAILY 30 Days tab 05/14/21 [Rx] Atorvastatin [Lipitor] 20 mg PO DAILY 30 Days tab 05/14/21 [Rx] Cyclobenzaprine HCl 10 mg PO TID PRN 30 Days tab 05/14/21 [Rx] DULoxetine HCL [Cymbalta] 30 mg PO DAILY 30 Days capsule 05/14/21 [Rx] Fluticasone Propionate 220 Mcg [Flovent 220 Mcg Inhaler (Mhu)] 2 puff INHALATION RT-BID #1 gm 05/14/21 [Rx] Gabapentin [Neurontin] 300 mg PO HS 30 Days #30 cap 05/14/21 [Rx] Ibuprofen [Motrin] 600 mg PO Q6HR PRN 30 Days tab 05/14/21 [Rx] Nicotine 21Mg/24Hr Patch [Habitrol] 1 patch TRANSDERM DAILY 14 Days patch 05/14/21 [Rx] OLANZapine [ZyPREXA] 10 mg PO HS 30 Days tab 05/14/21 [Rx] Locke-3 Fatty Acids/Fish Oil [Fish Oil 1,000 mg Softgel] 1 cap PO BID 30 Days cap 05/14/21 [Rx] Follow up Appointment(s)/Referral(s): Nonstaff,Physician [Primary Care Provider] - 1-2 days Activity/Diet/Wound Care/Special Instructions: Activity and diet as tolerated. Avoid the use of street drugs and alcohol. Take all medications as prescribed. When you are in need of refills on your medications please contact your medical provider and/or outpatient psychiatrist to have this done. Please go to scheduled outpatient appointment for aftercare treatment. If symptoms return or become worse, call the crisis line at and/or go to the nearest emergency room for evaluation. Discharge Disposition: HOME SELF-CARE
[2021-05-14] MEDS: ACETAMINOPHEN TAB 325 MG TAB PO PRN (14:07)
== END 2021-05-14 18:42 | disposition home or self-care (01) | DRG 885 ==
LOC: EC 18:29 → 3MHU 23:07
PROVIDERS: ADMIT Psychiatry & Neurology Psychiatry; ATTEND Psychiatry & Neurology Psychiatry
DX: F31.9 Bipolar disorder, unspecified (principal); R45.851 Suicidal ideations; E11.9 Type 2 diabetes mellitus without complications; E78.00 Pure hypercholesterolemia, unspecified; E78.5 Hyperlipidemia, unspecified; F10.21 Alcohol dependence, in remission; F17.200 Nicotine dependence, unspecified, uncomplicated; F41.9 Anxiety disorder, unspecified; G47.00 Insomnia, unspecified; G89.29 Other chronic pain; J43.9 Emphysema, unspecified; R45.850 Homicidal ideations; Z20.822 Contact with and (suspected) exposure to COVID-19; Z79.899 Other long term (current) drug therapy; Z85.819 Personal history of malignant neoplasm of unspecified site of lip, oral cavity, and pharynx; Z96.652 Presence of left artificial knee joint
CPT/HCPCS: 36415; 80053; 80061; 80143; 80179; 80306; 80320; 81003; 82075; 83036; 84443; 85025; 87635; 99285